=== PATIENT | female | born 1990 | race Caucasian/White ===

== ENCOUNTER 2025-07-23 14:57 | Outpatient (AMB) | payer MEDICAID, SELFPAY ==
[2025-07-23 15:15] VITALS: BP 109/68; PULSE 75; RESP 17; TEMP 36.9; O2SAT 97; BMI 21.9
--- NOTE | 2025-07-23 15:15 | OBCLNT_ITS ---
Vital Signs 07/23/25 15:15 Height 1.63 m Height Method Stated Weight 58.117 kg Weight Measurement Method Standing Scale BMI 21.9 BP 109/68 Blood Pressure Source Automatic Cuff Blood Pressure Location Right Upper Arm Position Sitting Respiration 17 Pulse 75 Pulse Source Monitor Temp 98.4 F Temp Source Temporal Artery Scan Pulse Oximetry (%) 97 Oxygen Delivery Method Room Air Allergies/Home Meds Allergies & Medications Allergies NKA* Allergy (Uncoded 07/23/25 15:16) Medication Reconciliation No Known Home Medications 07/23/25 [History Confirmed 07/23/25] Intake Visit Data Collection New Patient or Established: New Patient (never been to [facility]) Reason for Visit:: OBI Seen by Clinical Staff ONLY (RN/MA): No Obiee Obia Solution Architect Required: No Do You Feel Safe at Home: Yes Authorities Contacted: N/A PCP or OBGYN visit in last 3 months: No Hx Now: Yes Are you currently on any form of Control: No Last menstrual period: 05/14/25 Pain Present Currently: No Pain Scale Used: Meneses-Meeks/Numerical Pain scale:: 0 Smoking Status Smoking Status: Never smoker Questionnaires Covid-19 Vaccine Questionnaire Has patient been vacinated for Covid-19 Have you been vacinated for Covid-19: No PHQ-9 PHQ-2 Over the last 2 weeks, how often have you been bothered by any of the following problems? 1. Little interest or pleasure in doing things: not at all 2. Feeling down, depressed, or hopeless: not at all Total score: 0 PHQ-9 3. Trouble falling or staying asleep, or sleeping too much: Not at all 4. Feeling tired or having little energy: Not at all 5. Poor appetite or overeating: Not at all 6. Feeling bad about yourself - or that you are a failure or have let yourself or your family down: Not at all 7. Trouble concentrating on things, such as reading the newspaper or watching television: Not at all 8. Moving or speaking so slowly that other people could have noticed? - Or the opposite - being so fidgety or restless that you have been moving around a lot more than usual: not at all 9. Thoughts that you would be better off or of hurting yourself in some way: Not at all Total score: 0 If you checked off any problems, how difficult have these problems made it for you to do your work, take care of things at home, or get along with other people?: not difficult at all Source: Developed by Drs. Олег Jain, Ashley Gregorio, Danielito Juarez and colleagues, with an educational rea from [employer]. 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 Tobacco History Smoking Status: Never smoker Second Hand Smoke Exposure: No Alcohol History Alcohol Intake: Former Alcohol Intake Frequency: holidays/special occasions only Domestic Abuse History Do You Feel Safe at Home: Yes History of Present Illness HPI Narrative The patient is a 35-year-old -0-0-1 presents as a new OB. LMP 05/14/2025 EDC 02/17/2026. She denies any bleeding. She reports some breast tenderness and nausea. Last Pap was in 2019. OB Ultrasound Indication Indication: Size, dates, viability OB Ultrasound Ultrasound technique: transvaginal Gestational sac assessment: Presence, location, size, shape: Live intrauterine with crown-rump length of 3.22 cm corresponding to a gestational age of 10 weeks 1 day. Cardiac activity noted at 145 bpm. 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: Past Medical History Past Medical History: Yes Hx Blood Disorders and Yes Hx Anemia Additional Operations/Hospitalizations (year & reason): 07/2020 no complications daughter weight 8 pounds 11 ounces Other Relevant History: Denies chronic medical problems including asthma diabetes or hypertension OB Initial Visit Menstrual History Menstrual reliability: definite Flow: normal Menstrual regularity: regular Monthly: Yes Age at menarche: 14 On control pills at conception: No OB History : 2 Para: 1 # of Living Children: 1 Delivery History 1st : Child's name: TIMOTEO CELAYA date: 07/26/20 sex: female Gestational age at delivery (weeks): 41 Delivery type: vaginal weight (lbs): 3628.739 g weight (oz): 311.845 g History of depression before or after : No Infection History & Risk Evaluation History of STDs: none HIV risk evaluation: low risk Hepatitis B risk evaluation: low risk Patient or partner has history of Genital Herpes: No Varicella/chicken pox status: unknown Genetic Screening & History Genetic Screening/Teratology Counseling - Includes patient, baby's father, or anyone in either family with: 1. Patient's age 35 years or older as of estimated date of delivery: No 2. Thalassemia (Albanian, Equatorial Guinean, Mediterranean, or Background); MCV less than 80: No 3. Neural Tube Defect (Meningomyelocele, Spina Bifida, or Anencephaly): No 4. Congenital Heart Defect: No 5. Down Syndrome: No 6. Paul-Sachs (Ashkenazi Sabianist, Cajun, Saudi Arabian Chilean): No 7. Aubrey Disease (Ashkenazi Sabianist): No 8. Familial Dysautonomia (Ashkenazi Sabianist): No 9. Sickle Cell Disease or Trait (): No 10. Hemophilia or other blood disorders: No 11. Muscular Dystrophy: No 12. Cystic Fibrosis: No 13. [place]'s Chorea: No 14. Mental Retardation/Autism: No 15. Other inherited genetic or chromosomal disorder: No 16. Maternal Metabolic Disorder (EG,TYPE 1 Diabetes, PKU): No 17. Patient or baby's father had a child with defects not listed above: No 18. Recurrent loss or a stillbirth: No 19. Medications (including supplements, vitamins, herbs or otc drugs)/i llicit/recreational drugs/alcohol since last menstrual period: No 20. Any other: No Infection History 1. Live with someone with TB or exposed to TB: No 2. Rash or viral illness since last menstrual period: No 3. Hepatitis B,C: No Other (see comments) Source: [employer] Review of Systems Review of Systems Narrative Review of Systems: Patient reports fatigue breast tenderness some mild nausea. No severe vomiting. Declines medications. No bleeding. No pain. Exam General Limitations: no limitations General Appearance: alert, in no apparent distress, comfortable, cooperative, healthy appearing and well groomed External exam: Present normal external exam Speculum exam: Present normal speculum exam Bimanual exam: Present normal bimanual exam Office Procedures OBC Clinic LOC & Office Proc's Nursing/Assessment Patient Status: Initial/New Patient OB Clinic Nursing Assessment: Medication Reconciliation, Update PMH in EMR and Vital Signs OB Clinic Coordination of Care: Complex Care and Chronic Disease 1-5, Education Complex Pt/Fam, Consent,records obtained, informed consent, Lab and Imaging orders and Staff clarify orders Special Needs: Heart tones Miscellaneous Interventions: Pelvic/Pap Smear Set up New Patient Charge New Patient Point Assignment: [id number] New Patient Point Charge: RN CLINICAL COORDINATOR Level 4 ([id number]) In Clinic Bedside tests/procedures Bedside HCG: Yes Results Urine HCG Urine HCG Positive Last Edit by Falguni Orellana MA on 07/23/25 15:2 4 Assessment & Plan Diagnosis / Problem List (1) : Status: Acute Qualifiers: Weeks of gestation: 10 weeks Qualified Code(s): Z3A.10 - 10 weeks gestation of Plan: labs ordered. Official ultrasound ordered. NIPT ordered. Pap with cotest and HPV performed. GC and chlamydia will be checked in the urine. vitamins encouraged. Follow-up in 4 weeks Additional Plan Follow Up: 4 Weeks FR[employer]: Papsmear Pap Smear Procedure Pre-op diagnosis general: Annual women's Pap screening exam Post-op diagnosis procedure note: Same [place] in room during procedure?: Yes Procedure position: lithotomy Speculum inserted, cervix visualized: Yes Cervical appearance: normal Collection method: broom type device Specimen placed in liquid-based cytology medium: Yes Complications: No Patient tolerated procedure well: Yes Follow up pending results: appt for results review Procedure Notes:: After obtaining verbal and informed consent, a speculum exam was performed. Her cervix visualized. A Pap smear of her Endo and ectocervix with cotesting for HPV was performed using a broom device. The specimen was placed in a labeled liquid-based cytology medium. A pelvic exam revealed an anteverted uterus enlarged to approximately 10 weeks size with no adnexal masses or tenderness. Papsmear completed: yes
== END 2025-07-23 16:09 | disposition home or self-care (01) ==
LOC: HODSOBC 14:57
PROVIDERS: Supervising Provider Obstetrics & Gynecology; Visit Provider Obstetrics & Gynecology
DX: Z34.81 Encounter for supervision of other normal pregnancy, first trimester (principal); Z3A.10 10 weeks gestation of pregnancy
CPT/HCPCS: 81025; 99204; G0463

== ENCOUNTER 2025-08-26 15:25 | Outpatient (AMB) | payer MEDICAID, SELFPAY ==
[2025-08-26 15:30] VITALS: BP 113/64; PULSE 75; RESP 18; TEMP 36.7; O2SAT 98; BMI 22.5
--- NOTE | 2025-08-26 15:30 | AMB.OBVISIT ---
Vital Signs 08/26/25 15:30 Height 1.63 m Height Method Stated Weight 59.874 kg Weight Measurement Method Standing Scale BMI 22.5 BP 113/64 Blood Pressure Source Automatic Cuff Blood Pressure Location Right Upper Arm Position Sitting Respiration 18 Pulse 75 Pulse Source Monitor Temp 98.1 F Temp Source Temporal Artery Scan Pulse Oximetry (%) 98 Oxygen Delivery Method Room Air Allergies/Home Meds Allergies & Medications Allergies NKA* Allergy (Uncoded 08/26/25 15:31) Medication Reconciliation No Known Home Medications 07/23/25 [History Confirmed 08/26/25] Intake Visit Data Collection New Patient or Established: Established Patient (seen at [facility] within 3 years) Reason for Visit:: OBC Seen by Clinical Staff ONLY (RN/MA): No Environmental Associate Required: No Do You Feel Safe at Home: Yes Authorities Contacted: N/A PCP or OBGYN visit in last 3 months: Yes Date of Last PCP or OBGYN visit: 07/23/25 Hx Now: Yes Are you currently on any form of Control: No Pain Present Currently: No Pain Scale Used: Meneses-Meeks/Numerical Pain scale:: 0 Smoking Status Smoking Status: Never smoker Immunizations Flu Vaccine in the Last 12 Months: No Flu Vaccine Exclusion Criteria: No Exclusion Criteria Questionnaires Covid-19 Vaccine Questionnaire Has patient been vacinated for Covid-19 Have you been vacinated for Covid-19: No PHQ-9 PHQ-2 Over the last 2 weeks, how often have you been bothered by any of the following problems? 1. Little interest or pleasure in doing things: not at all 2. Feeling down, depressed, or hopeless: not at all Total score: 0 PHQ-9 3. Trouble falling or staying asleep, or sleeping too much: Not at all 4. Feeling tired or having little energy: Not at all 5. Poor appetite or overeating: Not at all 6. Feeling bad about yourself - or that you are a failure or have let yourself or your family down: Not at all 7. Trouble concentrating on things, such as reading the newspaper or watching television: Not at all 8. Moving or speaking so slowly that other people could have noticed? - Or the opposite - being so fidgety or restless that you have been moving around a lot more than usual: not at all 9. Thoughts that you would be better off or of hurting yourself in some way: Not at all Total score: 0 If you checked off any problems, how difficult have these problems made it for you to do your work, take care of things at home, or get along with other people?: not difficult at all Source: Developed by Drs. Олег Jain, Ashley Gregorio, Danielito Juarez and colleagues, with an educational rea from [employer]. 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 Denies bleeding, leaking, contractions. Patient did not do labs as directed last visit. Schedule ultrasound at [facility]. I gave patient an OB panel and NIPT, AFP and carrier screens today. I discussed abnormal Pap with patient schedule her with OB for further management of abnormal Pap. Discussed SAB precautions. Return in 4 weeks for OB check. CARA Calculator Estimated Delivery Date Method Current WG Current Estimate 02/17/26 Ultrasound #1 15w 0d Other Estimates 02/18/26 LMP (Certain) 14w 6d Notes Visit Date: 08/26/25 Last Updated by: Jeanie Pratt CNM 07/29: ASCUS/HPV+/ sched colpo 35yo 07/23/25: IUP 10wk, edc 02/17/26 per OB office sono Office Procedures OBC Clinic LOC & Office Proc's Nursing/Assessment Patient Status: Established Patient OB Clinic Nursing Assessment: Medication Reconciliation, Update PMH in EMR and Vital Signs OB Clinic Coordination of Care: Complex Care and Chronic Disease 1-5, Education Complex Pt/Fam, Consent,records obtained, informed consent, Results/Orders obtained and Staff clarify orders Special Needs: Heart tones Established Patient Charge Established Patient Point Assignment: 125 Established Patient Point Charge: EP Level 4 (120-155) Assessment & Plan Diagnosis / Problem List (1) Encounter for supervision of high risk in second trimester, antepartum: Status: Acute Plan Discussed dates. Discussed OB panel with NIPT and carrier screen and AFP today. I discussed abnormal Pap and patient will be scheduled with OB for further management of abnormal Pap. SAB precautions and return in 4 weeks Additional Plan Follow Up: 4 Weeks (obc)
== END 2025-08-26 16:17 | disposition home or self-care (01) ==
LOC: HODSOBC 15:25
PROVIDERS: Supervising Provider Advanced Practice Midwife; Visit Provider Advanced Practice Midwife
DX: O09.92 Supervision of high risk pregnancy, unspecified, second trimester (principal); Z3A.15 15 weeks gestation of pregnancy
CPT/HCPCS: 99214; G0463

== ENCOUNTER → 2025-09-23 15:25 | Outpatient (AMB) | payer MEDICAID, SELFPAY ==
[2025-09-23 15:42] VITALS: BP 108/71; PULSE 85; RESP 18; TEMP 36.7; O2SAT 99; BMI 23.6
--- NOTE | 2025-09-23 15:42 | OBCLNT_ITS ---
Vital Signs 09/23/25 15:42 Height 1.63 m Height Method Stated Weight 62.596 kg Weight Measurement Method Standing Scale BMI 23.6 BP 108/71 Blood Pressure Source Automatic Cuff Blood Pressure Location Right Upper Arm Position Sitting Respiration 18 Pulse 85 Pulse Source Monitor Temp 98.0 F Temp Source Temporal Artery Scan Pulse Oximetry (%) 99 Oxygen Delivery Method Room Air Allergies/Home Meds Allergies & Medications Allergies NKA* Allergy (Uncoded 09/23/25 15:43) Medication Reconciliation nitrofurantoin monohydrate/macrocrystals 100 mg capsule (Macrobid) 100 mg PO BID 7 days #14 caps 09/23/25 [Rx] Immunizations Immunizations Flu Vaccine in the Last 12 Months: No Flu Vaccine Exclusion Criteria: Refused by Patient Care OB Visit Log OB Flowsheet Initial Weight: Not Recorded Date -?-?-?-?-?-?-?-?-?-?-?-?- EGA Weight BP Alb Glu CTX Pres Fundal ht FHR Mov Dilation Station Effacement Hx Notes Visit Note 08/26/25 -?-?-?-?-?-?-?-?-?-?-?-?- 14w 6d 59.874 kg 113/64 absent unknown 14 145 absent Denies movement. Denies bleeding, leaking, contractions. Patient did not do labs as directed last visit. [facility] I gave patient an OB panel and NIPT, AFP and carrier screens today. I discussed abnormal Pap with patient schedule her with OB for further management of abnormal Pap. Discussed SAB precautions. Return in 4 weeks for OB check. 09/23/25 -?-?-?-?-?-?-?-?-?-?-?-?- 18w 6d 62.596 kg 108/71 absent unknown 19 144 active CARA Calculator Estimated Delivery Date Method Current WG Current Estimate 02/18/26 LMP (Certain) 19w 5d Other Estimates 02/17/26 Ultrasound #1 19w 6d Notes Visit Date: 09/23/25 Last Updated by: Amee Kramer MD Pap/HPV ASCUS/ Aptima positive 07/23/2025 and HPV subtype not done and plan repeat swab for pap/ HPV subtype today and then decide on colposcopy NIPT Negative /XY A positive / rest of the labs normal/ Urine c/s positive for strep and will treat with Macrobid / Ultrasound done at [facility] gives EDC of 02/11/2026 at 17 weeks so will stay with EDC 02/18/2026 based of LMP Visit Date: 08/26/25 Last Updated by: Jeanie Pratt CNM 07/29: ASCUS/HPV+/ sched colpo 35yo 07/23/25: IUP 10wk, edc 02/17/26 per OB office sono Office Procedures OBC Clinic LOC & Office Proc's Nursing/Assessment Patient Status: Established Patient OB Clinic Nursing Assessment: Medication Reconciliation, Update PMH in EMR and Vital Signs OB Clinic Coordination of Care: Complex Care and Chronic Disease 1-5, Education Complex Pt/Fam, Consent,records obtained, informed consent, Lab and Imaging orders, Results/Orders obtained and Staff clarify orders Special Needs: Heart tones Established Patient Charge Established Patient Point Assignment: 140 Established Patient Point Charge: EP Level 4 (120-155) Assessment & Plan Diagnosis / Problem List (1) Encounter for supervision of high risk in second trimester, antepartum: Status: Acute (2) Abnormal Pap smear of cervix: Status: Acute Qualifiers: Abnormal Pap type: ASC-US Qualified Code(s): R87.610 - Atypical squamous cells of undetermined significance on cytologic smear of cervix (ASC- US) Plan Pap/HPV ASCUS/ Aptima positive 07/23/2025 and HPV subtype not done and plan repeat swab for pap/ HPV subtype today and then decide on colposcopy NIPT Negative /XY A positive / rest of the labs normal/ Urine c/s positive for strep and will treat with Macrobid / Ultrasound done at [facility] gives EDC of 02/11/2026 at 17 weeks so will stay with EDC 02/18/2026 based of LMP / Pap/HPV done today
== END ==
PROVIDERS: Supervising Provider Obstetrics & Gynecology; Visit Provider Obstetrics & Gynecology
DX: O09.892 Supervision of other high risk pregnancies, second trimester (principal); O99.820 Streptococcus B carrier state complicating pregnancy; O99.891 Other specified diseases and conditions complicating pregnancy; R87.610 Atypical squamous cells of undetermined significance on cytologic smear of cervix (ASC-US); Z3A.18 18 weeks gestation of pregnancy; Z28.21 Immunization not carried out because of patient refusal
CPT/HCPCS: 99214; G0463

== ENCOUNTER 2025-10-21 14:54 | Outpatient (AMB) | payer MEDICAID, SELFPAY ==
[2025-10-21 15:20] VITALS: BP 113/74; PULSE 70; RESP 14; TEMP 36.5; O2SAT 98; BMI 23.1
--- NOTE | 2025-10-21 15:20 | AMB.OBPNC ---
Vital Signs 10/21/25 15:20 Height 1.63 m Height Method Stated Weight 61.462 kg Weight Measurement Method Standing Scale BMI 23.1 BP 113/74 Blood Pressure Source Automatic Cuff Blood Pressure Location Left Upper Arm Position Sitting Respiration 14 Pulse 70 Pulse Source Monitor Temp 97.7 F Temp Source Oral Pulse Oximetry (%) 98 Oxygen Delivery Method Room Air Allergies/Home Meds Allergies & Medications Allergies NKA* Allergy (Uncoded 10/21/25 15:22) Medication Reconciliation vitamins-iron fumarate 66 mg iron-folic acid 1 mg tablet tab PO 10/21/25 [History Confirmed 10/21/25] Immunizations Immunizations Flu Vaccine in the Last 12 Months: No Flu Vaccine Exclusion Criteria: Refused by Patient Care OB Visit Log OB Flowsheet Initial Weight: Not Recorded Date <del>?</del> EGA Weight BP Alb Glu CTX Pres Fundal ht FHR Mov Dilation Station Effacement Hx Notes Visit Note 08/26/25 <del>?</del> 14w 6d 59.874 kg 113/64 absent unknown 14 145 absent Denies movement. Denies bleeding, leaking, contractions. Patient did not do labs as directed last visit. Schedule ultrasound at [facility]. I gave patient an OB panel and NIPT, AFP and carrier screens today. I discussed abnormal Pap with patient schedule her with OB for further management of abnormal Pap. Discussed SAB precautions. Return in 4 weeks for OB check. 09/23/25 <del>?</del> 18w 6d 62.596 kg 108/71 absent unknown 19 144 active 10/21/25 <del>?</del> 22w 6d 61.462 kg 113/74 absent unknown 22 146 active CARA Calculator Estimated Delivery Date Method Current WG Current Estimate 02/18/26 LMP (Certain) 22w 6d Other Estimates 02/17/26 Ultrasound #1 23w 0d Notes Visit Date: 10/21/25 Last Updated by: Amee Kramer MD Patient had negative HPV 16 and negative HPV 18/45 and so plan repeat pap/ / she was GBS positive in urine and treated / Plan GTT on follow up in 4 weeks / refused flu vaccine Visit Date: 09/23/25 Last Updated by: Amee Kramer MD Pap/HPV ASCUS/ Aptima positive 07/23/2025 and HPV subtype not done and plan repeat swab for pap/ HPV subtype today and then decide on colposcopy NIPT Negative /XY A positive / rest of the labs normal/ Urine c/s positive for strep and will treat with Macrobid / Ultrasound done at [facility] EDC of 02/11/2026 at 17 weeks so will stay with EDC 02/18/2026 based of LMP Visit Date: 08/26/25 Last Updated by: Jeanie Pratt, CN 07/29: ASCUS/HPV+/ sched colpo 35yo 07/23/25: IUP 10wk, edc 02/17/26 per OB office sono Office Procedures OBC Clinic LOC & Office Proc's Nursing/Assessment Patient Status: Established Patient OB Clinic Nursing Assessment: Medication Reconciliation, Update PMH in EMR and Vital Signs OB Clinic Coordination of Care: Complex Care and Chronic Disease 1-5, Consent,records obtained, informed consent, Education Simp Pt/Fam, Lab and Imaging orders, Results/Orders obtained and Staff clarify orders Special Needs: Heart tones Established Patient Charge Established Patient Point Assignment: 135 Established Patient Point Charge: EP Level 4 (120-155) Assessment & Plan Diagnosis / Problem List (1) Abnormal Pap smear of cervix: Status: Acute Qualifiers: Abnormal Pap type: ASC-US Qualified Code(s): R87.610 - Atypical squamous cells of undetermined significance on cytologic smear of cervix (ASC-US) (2) Encounter for supervision of high risk in second trimester, antepartum: Status: Acute Additional Assessment Patient had negative HPV 16 and negative HPV 18/45 and so plan repeat pap/ / she was GBS positive in urine and treated / Plan GTT on follow up in 4 weeks / refused flu vaccine
== END 2025-10-21 16:27 | disposition home or self-care (01) ==
LOC: HODSOBC 14:54
PROVIDERS: Supervising Provider Obstetrics & Gynecology; Visit Provider Obstetrics & Gynecology
DX: O09.892 Supervision of other high risk pregnancies, second trimester (principal); O99.820 Streptococcus B carrier state complicating pregnancy; O99.891 Other specified diseases and conditions complicating pregnancy; R87.619 Unspecified abnormal cytological findings in specimens from cervix uteri; Z3A.22 22 weeks gestation of pregnancy; Z28.21 Immunization not carried out because of patient refusal
CPT/HCPCS: 99214; G0463